=== PATIENT | female | born 1975 | race Caucasian/White ===

== ENCOUNTER → 2018-06-14 | Outpatient (CLI) | payer OTHER ==
--- NOTE | 2018-06-14 08:59 | US ---
EXAMINATION TYPE: US transvaginal DATE OF EXAM: 06/14/2018 COMPARISON: NONE CLINICAL HISTORY: N93.8 Uterine bleeding. Irregular menses. TECHNIQUE: Transvaginal (TV). Date of LMP: 06/10/2018, EXAM MEASUREMENTS: Uterus: 7.7 x 5.1 x 4.3 cm Endometrial Stripe: 0.3 cm Right Ovary: 3.0 x 1.4 x 1.9 cm Left Ovary: 2.3 x 1.5 x 1.4 cm 1. Uterus: Anteverted Heterogenous, uterus appears bulky. EARNEST left hypoechoic lesion - 0.9 x 1.0 x 0.9 cm 2. Endometrium: wnl 3. Right Ovary: wnl 4. Left Ovary: wnl 5. Bilateral Adnexa: wnl 6. Posterior cul-de-sac: no free fluid Cervix- nabothian cysts Grayscale, color Doppler imaging performed. IMPRESSION: Probable fibroid within the uterus.
== END | disposition home or self-care (01) ==
LOC: RADUSWWP 08:08
PROVIDERS: ATTEND Family Medicine
DX: N93.8 Other specified abnormal uterine and vaginal bleeding (principal)
CPT/HCPCS: 76830

== ENCOUNTER → 2018-10-14 | Outpatient (CLI) | payer OTHER ==
--- NOTE | 2018-10-17 10:38 | MM ---
Reason for exam: screening (asymptomatic). Last mammogram was performed 4 years and 9 months ago. History: Family history of breast cancer in mother at age 50. Physical Findings: A clinical breast exam by your physician is recommended on an annual basis and results should be correlated with mammographic findings. MG 3D Screening Mammo W/Cad Bilateral CC and MLO view(s) were taken. Prior study comparison: January 10, 2014, mammogram, performed at [facility]. December 26, 2012, mammogram, performed at [facility]. December 23, 2012, mammogram, performed at [facility]. There are scattered fibroglandular densities. Finding: There is a 8 mm equal density (isodense), circumscribed, microlobulated oval mass located 4 cm from the nipple in the central position of the left breast consistent with possible mass versus cyst. New finding since January 10, 2014. ASSESSMENT: Incomplete: need additional imaging evaluation, BI-RAD 0 RECOMMENDATION: Ultrasound of the left breast. [facility] will attempt to contact patient to return for ultrasound.
== END | disposition home or self-care (01) ==
LOC: RADMAMWWP 11:22
PROVIDERS: ATTEND Family Medicine
DX: Z12.31 Encounter for screening mammogram for malignant neoplasm of breast (principal)
CPT/HCPCS: 77063; 77067

== ENCOUNTER → 2018-11-01 | Outpatient (CLI) | payer OTHER ==
--- NOTE | 2018-11-01 11:29 | USB ---
Reason for exam: additional evaluation requested from abnormal screening. History: Family history of breast cancer in mother at age 50. Physical Findings: Nurse Summary: right breast soft, movable, left breast nodular (nurse cw). US Breast Workup Limited LT Left limited breast ultrasound including focal area of concern, retroareolar and axilla demonstrates a 0.9 x 0.7 x 0.6cm solid, hypoechoic lesion at 7 o'clock. These results were verbally communicated with the patient and result sheet given to the patient on 11/01/18. ASSESSMENT: Suspicious, BI-RAD 4 RECOMMENDATION: Ultrasound core biopsy of the left breast. Called Dr. Negrete with mammographic findings and has scheduled an appointment for the patient for 11/15/18 at 9:[address] Marc. Biopsy scheduled for 11/08/18 at 12:20. PRELIMINARY REPORT CALLED AND FAXED TO DR. MARC ON 11/01/18.
== END | disposition home or self-care (01) ==
LOC: RADUSWWP 08:02
PROVIDERS: ATTEND Family Medicine
DX: R92.8 Other abnormal and inconclusive findings on diagnostic imaging of breast (principal)

== ENCOUNTER → 2018-11-08 | Day surgery (SDC) | payer OTHER ==
[2018-11-08 11:37] VITALS: TEMP 98; BMI 29.8
[2018-11-08 13:28] VITALS: BP 118/70; PULSE 75; RESP 13
--- NOTE | 2018-11-08 14:51 | USB ---
EXAMINATION TYPE: US biopsy breast VAD LT, MG diagnostic mammo LT wo CAD DATE OF EXAM: 11/08/2018 CLINICAL HISTORY: R92.8 ABN MAMMO. TECHNIQUE: Ultrasound guided core biopsy of left breast. COMPARISON: 10/14/2018 FINDINGS: The procedure of ultrasound guided core biopsy was explained to the patient. Benefits, alternatives, and risks were discussed. An informed consent was then obtained. Preprocedural timeout was performed. The patient was placed in supine positioning for imaging and for the procedure. The overlying skin was prepped and draped in usual sterile fashion. 10 cc of lidocaine buffered with bicarbonate was used as anesthetic into the skin and subcutaneous tissue up to the 0.9 x 0.7 x 0.6 cm hypoechoic mass in the left breast. Preprocedural imaging this appeared to possibly relate to a minimally complicated cyst. Under ultrasound guidance, a 12-gauge vacuum assisted biopsy gun device was used to obtain 3 core samples. After initial biopsy the cyst collapsed. 2 additional biopsies were obtained to evaluate for any atypical surrounding cells or confirmation of an inflammatory cyst. Following this, a ribbon-shaped biopsy marker was left at the site of biopsy. The patient tolerated the procedure well without any immediate complication. Preprocedural mammogram demonstrated appropriate biopsy marker placement. The patient was kept in the radiology department for short stay after the procedure and then discharged home in stable condition. IMPRESSION: Successful, uncomplicated ultrasound guided core biopsy of a minimally complex 9 mm cyst at the 7:00 position in the right breast with collapse of the cyst on an initial biopsy, full pathology results to follow. 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 Recommendation Surgical consult of the left breast. (incidental PASH) MTDD
== END | disposition home or self-care (01) ==
LOC: RADUSWWP 11:09
PROVIDERS: ATTEND Family Medicine
DX: N60.32 Fibrosclerosis of left breast (principal); N62 Hypertrophy of breast
CPT/HCPCS: 88305; 77065; 19083; A4648; J2001

== ENCOUNTER → 2020-03-25 | Outpatient (CLI) | payer OTHER ==
[2020-03-26 01:46] LABS: Hemoglobin A1C 7.4 % (4.0-6.0)
== END | disposition home or self-care (01) ==
LOC: LABWHC1 07:51
PROVIDERS: ATTEND Family Medicine
DX: E11.9 Type 2 diabetes mellitus without complications (principal)
CPT/HCPCS: 36415; 83036

== ENCOUNTER 2020-05-28 09:14 | Observation (INO) | payer OTHER ==
[2020-05-28 09:37] LABS: Glucose,Whole Blood 162 mg/dL (75-99)
[2020-05-28 09:54] LABS: Basophils # (A) 0.1 k/uL (0-0.2); Basophils % (A) 1 %; Eosinophils # (A) 0.3 k/uL (0-0.7); Eosinophils % (A) 3 %; HCT 43.5 % (34.0-46.0); HGB 14.3 gm/dL (11.4-16.0); Lymphocytes # (A) 3.1 k/uL (1.0-4.8); Lymphocytes % (A) 37 %; MCH 29.1 pg (25.0-35.0); MCHC 32.9 g/dL (31.0-37.0); MCV 88.3 fL (80.0-100.0); Mean Platelet Volume 8.5; Monocytes # (A) 0.3 k/uL (0-1.0); Monocytes % (A) 3 %; Neutrophils # (A) 4.6 k/uL (1.3-7.7); Neutrophils % (A) 55 %; Platelet Count 260 k/uL (150-450); RBC 4.93 m/uL (3.80-5.40); RDW 12.8 % (11.5-15.5); WBC 8.4 k/uL (3.8-10.6)
--- NOTE | 2020-05-28 09:59 | ED ---
General Adult HPI - General Chief complaint: Neuro Symptoms/Deficit Stated complaint: Vision disturbance, arm numbness Time Seen by Provider: 05/28/20 09:20 Source: patient Mode of arrival: wheelchair Limitations: no limitations - History of Present Illness Initial comments: This is a 44-year-old female past medical history of diabetes who [facility] with reported strokelike symptoms. Patient states around 8:40 AM she developed sudden onset of difficulties with her speech, right upper and lower extremity weakness. Patient states as if her hand was completely numb and she couldn't waiter/waitress captain anything. I had a visual disturbance in her right eye which lasted for approximately 10 minutes and then resolved. Speech difficulties and right sided weakness or persistent upon hospital presentation. Denies history of CVA. No recent head trauma. She does complain of a headache at this time. No chest pain or short of breath. No abdominal pain. Denies concern for . No other alleviating, precipitating or modifying factors - Related Data Home Medications Medication Instructions Recorded Confirmed Ibuprofen [Motrin Ib] 800 mg PO Q8H PRN 05/28/20 05/28/20 Multivitamins, Thera [Multivitamin 1 tab PO DAILY 05/28/20 05/28/20 (formulary)] metFORMIN HCL ER [Glucophage Xr] 500 mg PO DAILY 05/28/20 05/28/20 Previous Rx's Medication Instructions Recorded Atorvastatin Calcium [Lipitor] 10 mg PO HS #30 tab 05/29/20 Allergies Allergy/AdvReac Type Severity Reaction Status Date / Time No Known Allergies Allergy Verified 05/28/20 10:14 Review of Systems ROS Statement: Those systems with pertinent positive or pertinent negative responses have been documented in the HPI. ROS Other: All systems not noted in ROS Statement are negative. Past Medical History Past Medical History: Diabetes Mellitus History of Any Multi-Drug Resistant Organisms: None Reported Past Surgical History: Cholecystectomy, Orthopedic Surgery Additional Past Surgical History / Comment(s): right knee cyst removal, breast biopsy Past Anesthesia/Blood Transfusion Reactions: No Reported Reaction Additional Past Anesthesia/Blood Transfusion Reaction / Comment(s): No blood transfusion to date Past Psychological History: No Psychological Hx Reported Smoking Status: Current every day smoker Past Alcohol Use History: Rare Past Drug Use History: None Reported - Past Family History Mother Family Medical History: Cancer Additional Family Medical History / Comment(s): patient's mother was dx with breast cancer in her 50's, patients maternal grandmother was dx with breast cancer in her 70's General Exam Limitations: no limitations General appearance: alert, in no apparent distress Head exam: Present: atraumatic, normocephalic, normal inspection Eye exam: Present: normal appearance, PERRL, EOMI. Absent: scleral icterus, conjunctival injection, periorbital swelling ENT exam: Present: normal exam, mucous membranes moist Neck exam: Present: normal inspection. Absent: tenderness, meningismus, lymphadenopathy Respiratory exam: Present: normal lung sounds bilaterally. Absent: respiratory distress, wheezes, rales, rhonchi, stridor Cardiovascular Exam: Present: regular rate, normal rhythm, normal heart sounds. Absent: systolic murmur, diastolic murmur, rubs, gallop, clicks GI/Abdominal exam: Present: soft, normal bowel sounds. Absent: distended, tenderness, guarding, rebound, rigid Extremities exam: Present: normal inspection, full ROM, normal capillary refill. Absent: tenderness, pedal edema, joint swelling, calf tenderness Back exam: Present: normal inspection Neurological exam: Present: alert, oriented X3, CN II-XII intact, other (4/5 strength in the right upper and lower extremity. Mild delayed speech. No aphasia or dysarthria) Psychiatric exam: Present: normal affect, normal mood Skin exam: Present: warm, dry, intact, normal color. Absent: rash Course Vital Signs 05/28/20 05/28/20 05/28/20 09:20 09:38 09:45 Temperature 98.5 F 98.5 F 97.7 F Pulse Rate 75 71 66 Respiratory 18 18 8 L Rate Blood Pressure 156/79 144/81 143/77 O2 Sat by Pulse 100 100 100 Oximetry 05/28/20 05/28/20 05/28/20 09:56 10:00 10:15 Temperature 97.8 F 97.8 F Pulse Rate 661 H 70 69 Respiratory 8 L 8 L 18 Rate Blood Pressure 143/77 138/76 130/74 O2 Sat by Pulse 100 100 100 Oximetry 05/28/20 05/28/20 05/28/20 10:30 10:59 11:15 Temperature 97.7 F 97.8 F 98.4 F Pulse Rate 58 L 60 55 L Respiratory 18 18 18 Rate Blood Pressure 125/68 135/78 134/72 O2 Sat by Pulse 100 100 100 Oximetry 05/28/20 11:25 Temperature Pulse Rate 54 L Respiratory 18 Rate Blood Pressure 134/72 O2 Sat by Pulse 100 Oximetry - Reevaluation(s) Reevaluation #1: 05/28/20 09:[address] Rios EKG Findings - EKG Comments: EKG Findings:: EKG demonstrates a normal sinus rhythm with a ventricular rate of 80. NE interval 166. QRS 74. QTC of 429. Inverted T-wave in 3 and aVF. No acute ST segment elevations Medical Decision Making - Medical Decision Making Upon arrival patient is placed into room 2. A thorough history and physical exam was performed. Patient does remain with persistent weakness of her right upper and lower externally. She also has mild dysarthria. Called stroke is activated. Patient has an NIH of 3. I discussed the case with Dr. Rios who states that with the patient's low NIH she does not qualify for TPA. Laboratory studies were conducted and the patient went for a CT of her brain as well as CT angiography. Lab studies are reviewed. CT as well as CT angiography of the patient's brain was performed which demonstrates new acute process. Chest x-ray demonstrates no acute process. Patient is reevaluated and NIH is 0 at this time. I discussed results with the patient. She was given a full dose aspirin. I did recommend hospitalization for neurology evaluation for which the patient did agree to. Discuss case with Dr. Fox who agreed to admit the patient. She currently remained in stable condition and was transported to the floor - Lab Data Result diagrams: 05/29/20 07:02 05/29/20 07:02 Lab Results 05/28/20 05/28/20 05/28/20 Range/Units 09:30 09:30 09:30 WBC 8.4 (3.8-10.6) k/uL RBC 4.93 (3.80-5.40) m/uL Hgb 14.3 (11.4-16.0) gm/dL Hct 43.5 (34.0-46.0) % MCV 88.3 (80.0-100.0) fL MCH 29.1 (25.0-35.0) pg MCHC 32.9 (31.0-37.0) g/dL RDW 12.8 (11.5-15.5) % Plt Count 260 (150-450) k/uL MPV 8.5 Neutrophils % 55 % Lymphocytes % 37 % Monocytes % 3 % Eosinophils % 3 % Basophils % 1 % Neutrophils # 4.6 (1.3-7.7) k/uL Lymphocytes # 3.1 (1.0-4.8) k/uL Monocytes # 0.3 (0-1.0) k/uL Eosinophils # 0.3 (0-0.7) k/uL Basophils # 0.1 (0-0.2) k/uL PT 9.7 (9.0-12.0) sec INR 0.9 (<1.2) APTT 22.5 (22.0-30.0) sec Sodium 136 L (137-145) mmol/L Potassium 4.3 (3.5-5.1) mmol/L Chloride 103 (98-107) mmol/L Carbon Dioxide 28 (22-30) mmol/L Anion Gap 5 mmol/L BUN 14 (7-17) mg/dL Creatinine 0.75 (0.52-1.04) mg/dL Est GFR (CKD-EPI)AfAm >90 (>60 ml/min/1.73 sqM) Est GFR (CKD-EPI)NonAf >90 (>60 ml/min/1.73 sqM) Glucose 168 H (74-99) mg/dL POC Glucose (mg/dL) (75-99) mg/dL POC Glu [employer] Machine Operator ID Estimated Ave Glu mg/dL Hemoglobin A1c (4.0-6.0) % Calcium 10.3 H (8.4-10.2) mg/dL Total Bilirubin 0.5 (0.2-1.3) mg/dL AST 24 (14-36) U/L ALT 19 (4-34) U/L Alkaline Phosphatase 72 (38-126) U/L Troponin I (0.000-0.034) ng/mL Total Protein 7.8 (6.3-8.2) g/dL Albumin 4.6 (3.5-5.0) g/dL TSH (0.465-4.680) mIU/L 05/28/20 05/28/20 05/28/20 Range/Units 09:30 09:30 09:30 WBC (3.8-10.6) k/uL RBC (3.80-5.40) m/uL Hgb (11.4-16.0) gm/dL Hct (34.0-46.0) % MCV (80.0-100.0) fL MCH (25.0-35.0) pg MCHC (31.0-37.0) g/dL RDW (11.5-15.5) % Plt Count (150-450) k/uL MPV Neutrophils % % Lymphocytes % % Monocytes % % Eosinophils % % Basophils % % Neutrophils # (1.3-7.7) k/uL Lymphocytes # (1.0-4.8) k/uL Monocytes # (0-1.0) k/uL Eosinophils # (0-0.7) k/uL Basophils # (0-0.2) k/uL PT (9.0-12.0) sec INR (<1.2) APTT (22.0-30.0) sec Sodium (137-145) mmol/L Potassium (3.5-5.1) mmol/L Chloride (98-107) mmol/L Carbon Dioxide (22-30) mmol/L Anion Gap mmol/L BUN (7-17) mg/dL Creatinine (0.52-1.04) mg/dL Est GFR (CKD-EPI)AfAm (>60 ml/min/1.73 sqM) Est GFR (CKD-EPI)NonAf (>60 ml/min/1.73 sqM) Glucose (74-99) mg/dL POC Glucose (mg/dL) (75-99) mg/dL POC Glu [employer] Operator ID Estimated [address] Glu mg/dL 160 Hemoglobin A1c 7.2 H (4.0-6.0) % Calcium (8.4-10.2) mg/dL Total Bilirubin (0.2-1.3) mg/dL AST (14-36) U/L ALT (4-34) U/L Alkaline Phosphatase (38-126) U/L Troponin I <0.012 (0.000-0.034) ng/mL Total Protein (6.3-8.2) g/dL Albumin (3.5-5.0) g/dL TSH 3.340 (0.465-4.680) mIU/L 05/28/20 Range/Units 09:36 WBC (3.8-10.6) k/uL RBC (3.80-5.40) m/uL Hgb (11.4-16.0) gm/dL Hct (34.0-46.0) % MCV (80.0-100.0) fL MCH (25.0-35.0) pg MCHC (31.0-37.0) g/dL RDW (11.5-15.5) % Plt Count (150-450) k/uL MPV Neutrophils % % Lymphocytes % % Monocytes % % Eosinophils % % Basophils % % Neutrophils # (1.3-7.7) k/uL Lymphocytes # (1.0-4.8) k/uL Monocytes # (0-1.0) k/uL Eosinophils # (0-0.7) k/uL Basophils # (0-0.2) k/uL PT (9.0-12.0) sec INR (<1.2) APTT (22.0-30.0) sec Sodium (137-145) mmol/L Potassium (3.5-5.1) mmol/L Chloride (98-107) mmol/L Carbon Dioxide (22-30) mmol/L Anion Gap mmol/L BUN (7-17) mg/dL Creatinine (0.52-1.04) mg/dL Est GFR (CKD-EPI)AfAm (>60 ml/min/1.73 sqM) Est GFR (CKD-EPI)NonAf (>60 ml/min/1.73 sqM) Glucose (74-99) mg/dL POC Glucose (mg/dL) 162 H (75-99) mg/dL POC Glu [employer] Operator Leni Parkinson [address] Glu mg/dL Hemoglobin A1c (4.0-6.0) % Calcium (8.4-10.2) mg/dL Total Bilirubin (0.2-1.3) mg/dL AST (14-36) U/L ALT (4-34) U/L Alkaline Phosphatase (38-126) U/L Troponin I (0.000-0.034) ng/mL Total Protein (6.3-8.2) g/dL Albumin (3.5-5.0) g/dL TSH (0.465-4.680) mIU/L Critical Care Time Critical Care Time: Yes Critical Care Time: 32 minutes for activation of code stroke Disposition Clinical Impression: TIA (transient ischemic attack), Migraine Disposition: ADMITTED IP TO THIS [facility] Condition: Stable Is patient prescribed a controlled substance at d/c from ED?: No Decision to Admit Reason: Admit from EC Decision Date: 05/28/20 Decision Time: 11:28
--- NOTE | 2020-05-28 10:04 | CT ---
EXAMINATION TYPE: CT brain wo con for TPA DATE OF EXAM: 05/28/2020 COMPARISON: MRI brain 05/10/2015 INDICATION: Rt sided arm weakness DLP: 1148.8 mGycm, Automated exposure control for dose reduction was used. CONTRAST: None CT of the brain is performed utilizing 3 mm thick sections through the posterior fossa and 3 mm thick sections through the remaining calvarium. Study is performed within 24 hours of arrival to the hosp [facility]. No abnormal hyperdensity is present to suggest an acute intracranial hemorrhage. No mass lesion is evident. No acute infarcts are evident. Ventricles and sulci are appropriate for the patient age. Paranasal sinuses and mastoid air cells within the [id number] are clear. IMPRESSIONS: 1. No acute intracranial process.
[2020-05-28 10:09] LABS: ALT 19 U/L (4-34); AST 24 U/L (14-36); African American GFR (CKD) >90 (>60 ml/min/1.73 sqM); Albumin 4.6 g/dL (3.5-5.0); Alkaline Phosphatase 72 U/L (38-126); Anion Gap 5 mmol/L; Blood Urea Nitrogen 14 mg/dL (7-17); Calcium 10.3 mg/dL (8.4-10.2); Carbon Dioxide 28 mmol/L (22-30); Chloride 103 mmol/L (98-107); Glucose 168 mg/dL (74-99); Non-African American GFR(CKD) >90 (>60 ml/min/1.73 sqM); Potassium 4.3 mmol/L (3.5-5.1); Sodium 136 mmol/L (137-145); Total Bilirubin 0.5 mg/dL (0.2-1.3); Total Protein 7.8 g/dL (6.3-8.2)
[2020-05-28 10:18] LABS: INR 0.9 (<1.2)
[2020-05-28 10:19] LABS: Partial Thromboplastin Time 22.5 sec (22.0-30.0); Prothrombin Time 9.7 sec (9.0-12.0)
--- NOTE | 2020-05-28 10:56 | CT ---
EXAMINATION TYPE: CT angio head neck DATE OF EXAM: 05/28/2020 HISTORY: Visual disturbances, right arm weakness COMPARISON: CT brain same day CT DLP: 512.6 mGycm. Automated Exposure Control for Dose Reduction was Utilized. TECHNIQUE: CTA scan of the neck is performed with IV Contrast, patient injected with 65 mL of Isovue 370, axial images are obtained, coronal and sagittal reformatted images are reviewed. Three-D recons tructed images are created on an independent workstation and reviewed. FINDINGS: Carotid/Vascular Structures: There is no significant stenosis by NASCET criteria within the proximal internal carotid arteries. The innominate, transverse aorta, left and right common carotid arteries, left and right internal and external carotid arteries, left and right subclavian arteries are patent, the left and right vertebral arteries are patent. Anterior posterior circulation within the brain are patent, there is no evident embolus, dissection, or aneurysm. Other: Degenerative disc changes are present in the visualized spine. IMPRESSION: No significant abnormality is seen as described.
--- NOTE | 2020-05-28 11:10 | XR ---
EXAMINATION TYPE: XR chest 2V DATE OF EXAM: 05/28/2020 COMPARISON: NONE HISTORY: Altered mental status TECHNIQUE: Frontal and lateral views of the chest are obtained. FINDINGS: There is no focal air space opacity, pleural effusion, or pneumothorax seen. The cardiac silhouette size is within normal limits. The osseous structures are intact. Overlying cardiac leads . IMPRESSION: No acute cardiopulmonary process.
[2020-05-28] MEDS ORDERED: ASPIRIN 325 MG TAB PO STA (11:13)
[2020-05-28] MEDS ORDERED: NALOXONE 0.4 MG/ML 1 ML VIAL IV PRN (11:28)
[2020-05-28] MEDS ORDERED: diphenhydrAMINE 50 MG/ML 1 ML VIAL IVP STA (12:02)
[2020-05-28] MEDS ORDERED: METOCLOPRAMIDE 5 MG/ML 2 ML VIAL IVP STA (12:02)
[2020-05-28 12:03] LABS: Glucose,Whole Blood 113 mg/dL (75-99)
--- NOTE | 2020-05-28 14:07 | P.CNNES ---
History of Present Illness Consult date: 05/28/20 Requesting physician: Marlena Valdes Reason for Consult: Acute rt-sided weakness, acute visual disturbance, complex migraines, ?TIA History of Present Illness: Patient is a 44-year-old female with history of diabetes came to the hospital today at 9:14 AM came to the hospital for strokelike symptoms. Patient went to work in the morning. She was feeling perfectly fine. At 8:40 AM she had sudden onset of visual disturbance with blurred vision, couldn't see like fuzzy vision. She thought that she was just seeing through the sunlight. However shortly after she noticed numbness of the right arm that extended to the right hand. She felt as if she was sitting on the right hand for some time and felt numb. 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 About 5 minutes later, she also noticed slurred speech and tongue felt heavy like it is swollen. Patient states that visual symptoms lasted for only about 5 minutes, whereas the right arm numbness and speech difficulty lasted for about 20-30 minutes. With the slurred speech, she also started having a headache involving bifrontal region and inside her eyes, no nausea or vomiting. She got concerned and came to the ER and arrived at 9:14 AM. By the time she arrived here, all symptoms had completely resolved except for headache. There was no facial droop reported. Patient never had noticed any weakness in the right leg or problems walking, although patient claims that when she was evaluated in the ER, the examiner noted right leg weakness. Vital signs on arrival blood pressure 156/79, pulse rate 75, temperature 98.5. Blood test shows normal CBC, PT/PTT. Sodium 136 potassium 4.3, normal renal functions. Hepatic panel normal. Troponin negative. Patient had normal thy roid functions on 09/28/2019. Her total cholesterol is 207, LDL 90.8, HDL 45 and triglycerides 356 on 09/28/2019. Hemoglobin A1c 7.4 on 03/25/2020. Computed tomography scan of head negative. CT angiogram of head and neck showed no significant abnormality. No evidence of embolus, dissection or aneurysm. Degenerative disc changes are present in the visualized spine. Chest x-ray showed no acute cardiopulmonary process. EKG normal sinus rhythm. Patient denies any previous history of strokes or TIA. Patient has diabetes diagnosed about 6 months ago. Her initial hemoglobin A1c was 8. Patient denies hypertension. She does have history of tobacco use of half pack per day since age 15. Denies any alcohol or drug use. Patient states that she does have history of migraines but has not had any migraines for a long time. Her current headache was completely different as compared to her usual migraines and she never gets any aura. Patient states that with her migraines she used to see Dr. Felton, who performed a cortisone shots in her occipital region. Patient does take metformin 500 mg daily, multivitamins and ibuprofen. Patient does not take any control pills, hormones. Denies any history of head or neck trauma. Patient does have a history of some paresthesias of her hands and feet for which she is being scheduled to be seen for an EMG testing as outpatient. Patient states her mother has history of TIA. Review of Systems Patient does have some headache, otherwise completely unremarkable. All 14 point review of systems unremarkable. Past Medical History Past Medical History: Diabetes Mellitus History of Any Multi-Drug Resistant Organisms: None Reported Past Surgical History: Cholecystectomy, Orthopedic Surgery Additional Past Surgical History / Comment(s): right knee cyst removal, breast biopsy Past Anesthesia/Blood Transfusion Reactions: No Reported Reaction Additional Past Anesthesia/Blood Transfusion Reaction / Comment(s): No blood transfusion to date Past Psychological History: No Psychological Hx Reported Smoking Status: Current every day smoker Past Alcohol Use History: Rare Past Drug Use History: None Reported - Past Family History Mother Family Medical History: Cancer Additional Family Medical History / Comment(s): patient's mother was dx with breast cancer in her 50's, patients maternal grandmother was dx with breast cancer in her 70's Medications and Allergies Home Medications Medication Instructions Recorded Confirmed Type Ibuprofen [Motrin Ib] 800 mg PO Q8H PRN 05/28/20 05/28/20 History Multivitamins, Thera [Multivitamin 1 tab PO DAILY 05/28/20 05/28/20 History (formulary)] metFORMIN HCL ER [Glucophage Xr] 500 mg PO DAILY 05/28/20 05/28/20 History Allergies Allergy/AdvReac Type Severity Reaction Status Date / Time No Known Allergies Allergy Verified 05/28/20 10:14 Physical Examination - Vital Signs Vital Signs: Vital Signs Temp Pulse Pulse Resp BP BP Pulse Ox 05/28/20 12:46 97.7 F 86 12 127/72 97 05/28/20 11:25 54 L 18 134/72 100 05/28/20 11:15 98.4 F 55 L 18 134/72 100 05/28/20 10:59 97.8 F 60 18 135/78 100 05/28/20 10:30 97.7 F 58 L 18 125/68 100 05/28/20 10:15 97.8 F 69 18 130/74 100 05/28/20 10:00 97.8 F 70 8 L 138/76 100 05/28/20 09:56 661 H 8 L 143/77 100 05/28/20 09:45 97.7 F 66 8 L 143/77 100 05/28/20 09:38 98.5 F 71 18 144/81 100 05/28/20 09:20 98.5 F 75 18 156/79 100 Intake and Output 05/27/20 05/28/20 05/28/20 22:59 06:59 14:59 Other: # Voids 1 Weight 72.575 kg On examination patient is a middle aged female very pleasant in no acute distress. Patient is alert and awake oriented to time place and person speech and language function are normal. Attention and concentration fund of knowledge is adequate. On cranial examination pupils are round and reactive to light, visual hutson are full on confrontation, extraocular muscles are intact with no nystagmus. Face is symmetric, tongue protrudes to the midline. Palatal elevation sensation normal hearing and shoulder shrug normal. On muscle strength testing there is no pronator drift and the strength is normal in arms and legs distally and proximally reflexes are trace in the upper limbs, 1 at the knee and ankles. Plantars downgoing. Sensory touch is equal. Temperature sensation also equal. No ataxia for [id number] or onna-it-ongy testing. Her tone and bulk of muscles normal. Gait normal. No obvious bruit, S1 and S2 audible, abdomen soft nontender, chest is clear. Peripheral pulses present. No edema. Results - Laboratory Findings CBC and BMP: 05/28/20 09:30 05/28/20 09:30 Abnormal Lab Findings: Abnormal Labs 05/28/20 05/28/20 05/28/20 09:30 09:36 12:01 Sodium 136 L Glucose 168 H POC Glucose (mg/dL) 162 H 113 H Calcium 10.3 H Assessment and Plan Assessment: * Probable TIA manifesting with transient blurred vision, right arm weakness and numbness, and slurred speech, that resolved in slightly over 30 minutes. Complex migraine less likely. Patient never has history of migraine aura in the past, therefore complex migraine less likely. * History of common migraine headaches. * Vascular risk factors include diabetes, hyperlipidemia and [id number] of tobacco use. Plan: * Patient will undergo MRI of brain to evaluate for an acute stroke. * CTA of head and neck was negative for any intracranial or extracranial stenosis, or aneurysm. * 2-D echo with bubble study to rule out PFO or other embolic source. * Fasting a.m. lipid panel and hemoglobin A1c. * Start aspirin 325 mg daily. * Telemetric monitoring rule out any arrhythmia. * Neurology will follow.
[2020-05-28] MEDS ORDERED: ACETAMINOPHEN TAB 325 MG TAB PO PRN (14:23)
[2020-05-28] MEDS: SODIUM CHLORIDE 0.9% 1,000 ML IV SCH (15:07)
[2020-05-28] MEDS: ATORVASTATIN 40 MG TAB PO SCH (15:07)
--- NOTE | 2020-05-28 15:24 | P.HPIM ---
History of Present Illness H&P Date: 05/28/20 This is a 44-year-old female with past medical history significant for type 2 diabetes who presented to the emergency room with strokelike symptoms. Patient said that she went to work and was perfectly normal this morning and around 840 she started having blurred vision and subsequently had right arm numbness all the way down to her right hand. Patient said that her right hand felt weak as well. A few minutes later she was having slurred speech and felt that her tongue was heavy. Patient said that her symptoms lasted approximately 20 minutes. She denies any headache. She was evaluated in the ER and computed tomography scan of the brain and CT angiogram of the head and neck showed no ac minto findings. Case was discussed with telemetry neurology by ED staff and plan to place patient in observation for further management. Patient was seen by me in her room. She denies any symptoms at this time. Review of Systems Review of system: 14 points review of systems were obtained and were negative except to what were mentioned in the HPI. Past Medical History Past Medical History: Diabetes Mellitus History of Any Multi-Drug Resistant Organisms: None Reported Past Surgical History: Cholecystectomy, Orthopedic Surgery Additional Past Surgical History / Comment(s): right knee cyst removal, breast biopsy Past Anesthesia/Blood Transfusion Reactions: No Reported Reaction Additional Past Anesthesia/Blood Transfusion Reaction / Comment(s): No blood transfusion to date Past Psychological History: No Psychological Hx Reported Smoking Status: Current every day smoker Past Alcohol Use History: Rare Past Drug Use History: None Reported - Past Family History Mother Family Medical History: Cancer Additional Family Medical History / Comment(s): patient's mother was dx with breast cancer in her 50's, patients maternal grandmother was dx with breast cancer in her 70's Medications and Allergies Home Medications Medication Instructions Recorded Confirmed Type Ibuprofen [Motrin Ib] 800 mg PO Q8H PRN 05/28/20 05/28/20 History Multivitamins, Thera [Multivitamin 1 tab PO DAILY 05/28/20 05/28/20 History (formulary)] metFORMIN HCL ER [Glucophage Xr] 500 mg PO DAILY 05/28/20 05/28/20 History Allergies Allergy/AdvReac Type Severity Reaction Status Date / Time No Known Allergies Allergy Verified 05/28/20 10:14 Physical Exam Vitals: Vital Signs Temp Pulse Pulse Resp BP BP Pulse Ox 05/28/20 12:46 97.7 F 86 12 127/72 97 05/28/20 11:25 54 L 18 134/72 100 05/28/20 11:15 98.4 F 55 L 18 134/72 100 05/28/20 10:59 97.8 F 60 18 135/78 100 05/28/20 10:30 97.7 F 58 L 18 125/68 100 05/28/20 10:15 97.8 F 69 18 130/74 100 05/28/20 10:00 97.8 F 70 8 L 138/76 100 05/28/20 09:56 661 H 8 L 143/77 100 05/28/20 09:45 97.7 F 66 8 L 143/77 100 05/28/20 09:38 98.5 F 71 18 144/81 100 05/28/20 09:20 98.5 F 75 18 156/79 100 Intake and Output 05/28/20 05/28/20 05/28/20 06:59 14:59 22:59 Other: # Voids 1 Weight 72.575 kg General: The patient is awake and alert, in no distress Eye: there is normal conjunctiva bilaterally. Neck: The neck is supple, there is no JVD. Cardiovascular: Normal S1-S2, no S3-S4, no murmurs. Respiratory: Lungs clear to auscultation bilaterally Gastrointestinal: Abdomen is soft, nontender Musculoskeletal: There is no pedal edema. Neurological:. Speech is normal. Skin: Skin is warm and dry Results CBC & Chem 7: 05/28/20 09:30 05/28/20 09:30 Labs: Abnormal Lab Results - Last 24 Hours (Table) 05/28/20 05/28/20 05/28/20 Range/Units 09:30 09:36 12:01 Sodium 136 L (137-145) mmol/L Glucose 168 H (74-99) mg/dL POC Glucose (mg/dL) 162 H 113 H (75-99) mg/dL Calcium 10.3 H (8.4-10.2) mg/dL Thrombosis Risk Factor Assmnt - Choose All That Apply Any of the Below Risk Factors Present?: Yes Each Factor Represents 1 point: Age 41-60 years Thrombosis Risk Factor Assessment Total Risk Factor Score: 1 Thrombosis Risk Factor Assessment Level: Low Risk Assessment and Plan Assessment: This is a 44-year-old female with past medical history noted below who presented to the emergency room with strokelike symptoms involving right arm and right hand numbness and weakness as well as slurred speech. Patient was evaluated in the ER and placed on observation for further management of her medical problems noted below 1. Suspected TIA, seen and evaluated by neurology. Started on full dose aspirin daily. I would add Lipitor 40 mg daily. MRI ordered and pending. Co mputed tomography scan of the brain and CT angiogram of the head and neck in the ER unremarkable. Echocardiogram with bubble study pending. 2. Type 2 diabetes, hold metformin and continue sliding scale insulin. A1c pending. 3. DVT prophylaxis with subcu heparin We will continue telemetry monitoring. PT/OT/speech pathology evaluation. IV fluid hydration with normal saline at 75 mL per hour.
--- NOTE | 2020-05-28 16:43 | ECHOF ---
Referral Reason:TIA versus CVA MEASUREMENTS -------- HEIGHT: 167.6 cm WEIGHT: 72.6 kg BP: RVIDd: 2.5 cm (< 3.3) IVSd: 1.4 cm (0.6 - 1.1) LVIDd: 3.4 cm (3.9 - 5.3) LVPWd: 1.3 cm (0.6 - 1.1) IVSs: 1.5 cm LVIDs: 2.6 cm LVPWs: 1.7 cm LAESV Index (A-L): 16.67 ml/m Ao Diam: 3.1 cm (2.0 - 3.7) AV Cusp: 1.7 cm (1.5 - 2.6) LA Diam: 2.3 cm (2.7 - 3.8) MV EXCURSION: 14.967 mm (> 18.000) MV EF SLOPE: 106 mm/s (70 - 150) EPSS: 0.5 cm MV E Kane: 0.99 m/s MV DecT: 245 ms MV A Kane: 0.63 m/s MV E/A Ratio: 1.57 RAP: 5.00 mmHg RVSP: 19.00 mmHg FINDINGS -------- This was a technically good study. The left ventricular size is normal. There is mild concentric left ventricular hypertrophy. Overa ll left ventricular systolic function is normal with, an EF between 55 - 60 %. The diastolic fillin g pattern is normal for the age of the patient 10.43. The right ventricle is normal in size. The left atrial size is normal. Normal LA size by volume 22+/-6 ml/m2. The right atrial size is normal. Contrast study was performed with 1 iv injection of 8 ccs of agitated normal saline at rest. Interatrial and interventricular septum intact. The aortic valve is trileaflet and appears structurally normal. The mitral valve is normal. There is trace mitral regurgitation. The tricuspid valve appears structurally normal. Trace tricuspid regurgitation present. Right kelly tricular systolic pressure is normal at < 35 mmHg. There is no pulmonic regurgitation present. The aortic root size is normal. Normal inferior vena cava with normal inspiratory collapse consistent with estimated right atrial pre ssure of 5 mmHg. There is no pericardial effusion. CONCLUSIONS -------- 1. The left ventricular size is normal. 2. There is mild concentric left ventricular hypertrophy. 3. Overall left ventricular systolic function is normal with, an EF between 55 - 60 %. 4. The diastolic filling pattern is normal for the age of the patient 10.43 5. Contrast study was performed with 1 iv injection of 8 ccs of agitated normal saline . No bubbles c rossing. 6. Interatrial and interventricular septum intact. 7. There is trace mitral regurgitation. 8. Trace tricuspid regurgitation present. 9. There is no pericardial effusion. WOOD HACKER: Amanda Ji RDCS
--- NOTE | 2020-05-28 16:49 | MR ---
MR brain without contrast HISTORY: TIA versus cerebral vascular accident, neuro deficit Multiplanar multisequence imaging through the brain Correlation to CT brain 05/28/2020, MR brain 05/10/2015 There is no restricted diffusion. There is no hemorrhage or hydrocephalus. White matter signal change s show a similar appearance to prior exam, hyperintensity in the left and right frontal white matter on inversion recovery T2-weighted sequences, hyperintensity within the rangel is unchanged, inferior ce rebellar tonsillar ectopia shows a similar appearance. There are normal vascular flow voids. Cerebell opontine angles, corpus callosum, solitary, cervical medullary junction are unchanged. Orbits show sy mmetric appearance. Paranasal sinuses and mastoid air cells are well aerated. IMPRESSION: Stable brain MRI. No subacute ischemia evident.
[2020-05-28 17:07] LABS: Glucose,Whole Blood 111 mg/dL (75-99)
[2020-05-28] MEDS: INSULIN ASPART (NovoLOG) 100 UNIT/ML VIAL SQ SCH ×2 (17:33→21:18)
[2020-05-28 21:12] LABS: Glucose,Whole Blood 123 mg/dL (75-99)
[2020-05-28] MEDS: HEPARIN SODIUM,PORCINE 5,000 UNIT/ML 1 ML VIAL SQ SCH (21:20)
[2020-05-28 22:17] LABS: Hemoglobin A1C 7.2 % (4.0-6.0)
[2020-05-29] MEDS: SODIUM CHLORIDE 0.9% 1,000 ML IV SCH (05:12)
[2020-05-29] MEDS: INSULIN ASPART (NovoLOG) 100 UNIT/ML VIAL SQ SCH (06:25)
[2020-05-29 06:26] LABS: Glucose,Whole Blood 142 mg/dL (75-99)
[2020-05-29 07:24] LABS: Basophils # (A) 0.1 k/uL (0-0.2); Basophils % (A) 1 %; Eosinophils # (A) 0.3 k/uL (0-0.7); Eosinophils % (A) 3 %; HCT 40.3 % (34.0-46.0); HGB 13.6 gm/dL (11.4-16.0); Lymphocytes # (A) 3.7 k/uL (1.0-4.8); Lymphocytes % (A) 42 %; MCH 30.6 pg (25.0-35.0); MCHC 33.9 g/dL (31.0-37.0); MCV 90.3 fL (80.0-100.0); Mean Platelet Volume 8.8; Monocytes # (A) 0.4 k/uL (0-1.0); Monocytes % (A) 4 %; Neutrophils # (A) 4.3 k/uL (1.3-7.7); Neutrophils % (A) 49 %; Platelet Count 228 k/uL (150-450); RBC 4.46 m/uL (3.80-5.40); RDW 12.5 % (11.5-15.5); WBC 8.9 k/uL (3.8-10.6)
[2020-05-29 07:35] LABS: African American GFR (CKD) >90 (>60 ml/min/1.73 sqM); Anion Gap 4 mmol/L; Blood Urea Nitrogen 13 mg/dL (7-17); Calcium 9.1 mg/dL (8.4-10.2); Carbon Dioxide 26 mmol/L (22-30); Chloride 106 mmol/L (98-107); Cholesterol 178 mg/dL (<200); Glucose 144 mg/dL (74-99); HDL Cholesterol 32 mg/dL (40-60); LDL Cholesterol,Calculated 76 mg/dL (0-99); Non-African American GFR(CKD) >90 (>60 ml/min/1.73 sqM); Potassium 4.3 mmol/L (3.5-5.1); Sodium 136 mmol/L (137-145); Triglycerides 350 mg/dL (<150)
[2020-05-29] MEDS: ATORVASTATIN 40 MG TAB PO SCH (08:03)
[2020-05-29] MEDS: HEPARIN SODIUM,PORCINE 5,000 UNIT/ML 1 ML VIAL SQ SCH (08:03)
[2020-05-29 08:07] VITALS: BP 114/72; PULSE 57; RESP 16; TEMP 98.2
--- NOTE | 2020-05-29 08:47 | P.DS ---
Providers Date of admission: 05/28/20 11:28 Expected date of discharge: 05/29/20 Attending physician: Carey Fox Consults: 05/28/20 11:29 Consult Physician Urgent Consulting Provider: Tobi Ca Consult Reason/Comments: acute right sided weakness, acute visual disturbance, com migraine vs tia Do you want consulting provider notified?: Yes Primary care physician: Angela Negrete [place] Hospital Course: This is a 44-year-old female with past medical history noted below who presented to the emergency room with strokelike symptoms involving right arm and right hand numbness and weakness as well as slurred speech. Patient was evaluated in the ER and placed on observation for further management of her medical problems noted below 1. Suspected TIA, rule out. seen and evaluated by neurology. Computed tomography scan of the brain and CT angiogram of the head and neck in the ER unremarkable. MRI of the brain was normal. Echocardiogram showed preserved ejection fraction with no evidence of shunting or intracardiac source. 2. Type 2 diabetes, relatively well controlled. A1c 7.2. Encouraged patient to continue with lifestyle modification and exercise. Add Lipitor 10 mg daily to her regimen. Follow-up with PCP as directed. Patient will be discharged home in a stable condition. For further details about this hospitalization please refer to the electronic chart. Time spent on discharge > 30 minutes including counseling and coordination of care Patient Condition at Discharge: Stable Plan - Discharge Summary Discharge Rx Participant: No New Discharge Prescriptions: New Atorvastatin Calcium [Lipitor] 10 mg PO HS #30 tab Continue metFORMIN HCL ER [Glucophage Xr] 500 mg PO DAILY Multivitamins, Thera [Multivitamin (formulary)] 1 tab PO DAILY Ibuprofen [Motrin Ib] 800 mg PO Q8H PRN PRN Reason: Pain Or Fever > 100.5 Discharge Medication List Ibuprofen [Motrin Ib] 800 mg PO Q8H PRN 05/28/20 [History] Multivitamins, Thera [Multivitamin (formulary)] 1 tab PO DAILY 05/28/20 [History] metFORMIN HCL ER [Glucophage Xr] 500 mg PO DAILY 05/28/20 [History] Atorvastatin Calcium [Lipitor] 10 mg PO HS #30 tab 05/29/20 [Rx] Follow up Appointment(s)/Referral(s): Angela Negrete MD [Primary Care Provider] - 1 Week Discharge Disposition: HOME SELF-CARE
[2020-05-29] MEDS ORDERED: ASPIRIN 325 MG TAB PO SCH (09:00)
== END 2020-05-29 09:45 | disposition home or self-care (01) ==
LOC: EC 09:14 → 3NCARDOBS 11:28
PROVIDERS: ADMIT Internal Medicine; ATTEND Internal Medicine
DX: H53.9 Unspecified visual disturbance (principal); R20.0 Anesthesia of skin; R53.1 Weakness; R20.2 Paresthesia of skin; G43.909 Migraine, unspecified, not intractable, without status migrainosus; E78.5 Hyperlipidemia, unspecified; R47.1 Dysarthria and anarthria; R47.81 Slurred speech; E11.9 Type 2 diabetes mellitus without complications; Z90.49 Acquired absence of other specified parts of digestive tract; F17.200 Nicotine dependence, unspecified, uncomplicated; Z79.1 Long term (current) use of non-steroidal anti-inflammatories (NSAID); Z79.84 Long term (current) use of oral hypoglycemic drugs; Z80.3 Family history of malignant neoplasm of breast; Z82.3 Family history of stroke
CPT/HCPCS: 96372 ×2; 96374; 96375; 99285; 36415; 93005; 93306; 97161; 80061; 80053; 80048; 84443; 84484; 85025 ×2; 85610; 85730; 83036; 71046; 70496; 70450; 70498; 70551; G0378 ×2; J1200; J1644 ×2; J2765; Q9967

== ENCOUNTER → 2020-08-22 | Outpatient (CLI) | payer OTHER ==
--- NOTE | 2020-08-23 09:32 | MM ---
Reason for exam: additional evaluation requested from prior study. Last mammogram was performed 1 year and 9 months ago. History: Family history of breast cancer in mother at age 50. Benign US biopsy breast VAD LT of the left breast, November 08, 2018. Physical Findings: Nurse did not find any significant physical abnormalities on exam. MG 3D Diag Mammo W/Cad BELLE Bilateral CC, MLO, and XCCL view(s) were taken. Prior study comparison: November 08, 2018, left breast MG diagnostic mammo LT wo CAD. October 14, 2018, bilateral MG 3d screening mammo w/cad. The breast tissue is heterogeneously dense. This may lower the sensitivity of mammography. Previous mammotome biopsy in the left breast. On XCCL view questionable calcification subareolar position, not on magnification views. No significant new findings when compared with previous films. These results were verbally communicated with the patient and result sheet given to the patient on 08/22/20. ASSESSMENT: Probably benign, BI-RAD 3 RECOMMENDATION: Follow-up diagnostic mammogram of the left breast in 6 months.
== END | disposition home or self-care (01) ==
LOC: RADMAMWWP 12:42
PROVIDERS: ATTEND Family Medicine
DX: R92.8 Other abnormal and inconclusive findings on diagnostic imaging of breast (principal)
CPT/HCPCS: 77062; 77066

== ENCOUNTER → 2021-09-24 | Outpatient (CLI) | payer OTHER ==
--- NOTE | 2021-09-24 08:40 | MM ---
Reason for exam: additional evaluation requested from prior study. Last mammogram was performed 1 year and 1 month ago. History: Family history of breast cancer in maternal grandmother and breast cancer in mother at age 50. Benign US biopsy breast VAD LT of the left breast, November 08, 2018. Physical Findings: A clinical breast exam by your physician is recommended on an annual basis and results should be correlated with mammographic findings. MG 3D Diag Mammo W/Cad BELLE Bilateral CC, MLO, and XCCL view(s) were taken. Prior study comparison: August 22, 2020, bilateral MG 3d diag mammo w/cad BELLE. November 08, 2018, left breast MG diagnostic mammo LT wo CAD. The breast tissue is heterogeneously dense. This may lower the sensitivity of mammography. Previous mammotome biopsy in the left breast. There is no discrete abnormality including area of concern. No significant new findings when compared with previous films. These results were verbally communicated with the patient and result sheet given to the patient on 09/24/21. ASSESSMENT: Benign, BI-RAD 2 RECOMMENDATION: Routine screening mammogram of both breasts in 1 year.
== END | disposition home or self-care (01) ==
LOC: RADMAMWWP 07:34
PROVIDERS: ATTEND Family Medicine
DX: R92.8 Other abnormal and inconclusive findings on diagnostic imaging of breast (principal)
CPT/HCPCS: 77062; 77066

== ENCOUNTER → 2022-12-21 | Outpatient (CLI) | payer OTHER ==
--- NOTE | 2022-12-22 14:52 | US ---
EXAMINATION TYPE: US arterial LE single level DATE OF EXAM: 12/21/2022 1:33 PM CLINICAL INDICATION: Female, 47 years old with history of R20.2 PARESTHESIA OF SKIN; tingling bilater al legs after walking for years. Pain bilateral calves, worse at night History of: Smoker: yes Hypertension: no Diabetic: yes Hyperlipidemia: yes TIA/CVA: no Previous Vascular Surgery: no OR: no Vascular Ulcers: no Gangrene: no Doppler Waveforms: Right: Multiphasic Left: Multiphasic Right Brachial Pressure: 138 Left Brachial Pressure: 135 Ankle-Brachial Indices: Right: 1.14 Left: 1.24 Toe Brachial Indices: Right: 0.46 Left: 0.51 IMPRESSION: 1. ABIs are normal. 2. However, the TBI values suggest moderate proximal arterial atherosclerotic disease
== END | disposition home or self-care (01) ==
LOC: RADUSWWP 12:54
PROVIDERS: ATTEND Family Medicine
DX: R20.2 Paresthesia of skin (principal)
CPT/HCPCS: 93922

== ENCOUNTER → 2023-09-15 | Outpatient (CLI) | payer OTHER ==
--- NOTE | 2023-09-16 19:25 | MM ---
Reason for Exam: Screening (asymptomatic). Last mammogram was performed 2 year(s) and 0 month(s) ago. Patient History: Menarche at age 11. First Full-Term at age 20. Perimenopausal. 11/08/2018, Benign Core Biopsy on the left side. Maternal grandmother had breast cancer. Mother had breast cancer, age 50. Last menstrual period: 08/09/2023 Risk Values: Sheyla 5 year model risk: 2.3%. NCI Lifetime model risk: 19.8%. Prior Study Comparison: 11/08/2018 Left Diagnostic Mammogram, [facility]. 08/22/2020 Bilateral Diagnostic Mammogram, [facility]. 09/24/2021 Bilateral Diagnostic Mammogram, [facility]. Tissue Density: The breasts are heterogeneously dense, which may obscure small masses. Findings: Analyzed By CAD. Microclip left breast from prior biopsy. Chronic nodularity on the left. There is no suspicious group of microcalcifications or new suspicious mass in either breast. Overall Assessment: Benign, BI-RAD 2 Management: Screening Mammogram of both breasts in 1 year. See note below in regards to patient's increased lifetime risk score. Patient should continue monthly self-breast exams. A clinical breast exam by your physician is recommended on an annual basis. This exam should not preclude additional follow-up of suspicious palpable abnormalities. Note on Sheyla scores and lifetime risk: 1. A Sheyla score greater than 3% is considered moderate risk. If this is the case, consider specialist referral to assess eligibility for a risk reducing agent. 2. If overall lifetime risk for the development of breast cancer is 20% or higher, the patient may qualify for future screening with alternating mammogram and breast MRI. Electronically signed and approved by: Guillermo Valdes M.D. Radiologist
== END | disposition home or self-care (01) ==
LOC: RADMAMWWP 14:50
PROVIDERS: ATTEND Family Medicine
DX: Z12.31 Encounter for screening mammogram for malignant neoplasm of breast (principal); Z80.3 Family history of malignant neoplasm of breast
CPT/HCPCS: 77063; 77067

== ENCOUNTER → 2023-09-24 | Outpatient (CLI) | payer OTHER ==
--- NOTE | 2023-09-29 06:20 | MR ---
EXAMINATION TYPE: MR knee LT wo con DATE OF EXAM: 09/24/2023 COMPARISON: NONE HISTORY: Pain and swelling left knee x3 months TECHNIQUE: Multiplanar, multisequence images of the knee is performed without IV contrast. FINDINGS: MEDIAL MENISCUS: Anterior and posterior horns are intact without tear. LATERAL MENISCUS: Anterior and posterior horns are intact without tear. CRUCIATE LIGAMENTS: The anterior and posterior cruciate ligaments are intact and unremarkable. COLLATERAL LIGAMENTS: The medial collateral ligament and lateral collateral ligament complex are inta ct and unremarkable. EXTENSOR MECHANISM: Visualized quadriceps and patellar tendons are intact. EFFUSION: No significant suprapatellar joint effusion. POPLITEAL CYST: Tiny popliteal/wong cyst. TRICOMPARTMENT SPACES: Tricompartment joint spaces are preserved. No significant spurring is seen. CARTILAGE: Tricompartmental articular cartilage is maintained. BONE MARROW SIGNAL: No focal abnormal marrow signal is appreciated. OTHER: No additional significant abnormality is appreciated. IMPRESSION: No meniscal or ligamentous tear is seen. Tiny popliteal cyst noted.
== END | disposition home or self-care (01) ==
LOC: RADMRIMAIN 18:48
PROVIDERS: ATTEND Orthopaedic Surgery
DX: M25.562 Pain in left knee (principal)

== ENCOUNTER → 2024-06-23 | Day surgery (SDC) | payer OTHER ==
[2024-06-22 11:26] VITALS: BMI 24.2
[~2024-06-23] MED LIST: LIDOCAINE 1% (10MG/ML) FOR IV START INTRADERMA PRN; PROPOFOL 10 MG/ML 20 ML VIAL IV ONE
[2024-06-23] MEDS: IV FLUID CONTINUATION 1,000 ML IV ONE (11:30)
[2024-06-23 11:32] VITALS: TEMP 97.2
[2024-06-23] MEDS: LACTATED RINGERS 1,000 ML IV SCH (11:39)
[2024-06-23 11:41] LABS: Glucose,Whole Blood 119 mg/dL (70-110)
--- NOTE | 2024-06-23 12:34 | P.PCN ---
Date of Procedure: 06/23/24 Procedure(s) Performed: BRIEF HISTORY: Patient is a 48-year-old pleasant white female scheduled for an elective colonoscopy as a part of screening for colon cancer. PROCEDURE PERFORMED: Colonoscopy. PREOPERATIVE DIAGNOSIS: Screening for colon cancer. IV sedation per Anesthesia. PROCEDURE: After informed consent was obtained, the patient, was brought into the endoscopy unit. IV sedation was administered by Anesthesia under continuous monitoring. Digital rectal examination was normal. Initially the Olympus CF-160 flexible video colonoscope was then inserted in the rectum, gradually advanced into the cecum without any difficulty. Careful examination was performed as the scope was gradually being withdrawn. Ileocecal valve and the appendiceal orifice were visualized and appeared normal. Prep was excellent. Mucosa of the cecum, ascending colon, transverse colon, descending colon, sigmoid colon, and rectum appeared normal. Scattered sigmoid diverticulosis. Retroflexion was performed in the rectum and no lesions were seen. The patient tolerated the procedure well. IMPRESSION: Normal-appearing colon from rectum to cecum no evidence of colorectal neoplasia. Scattered sigmoid diverticulosis. RECOMMENDATIONS: Findings of this examination were discussed with the patient as well as her family. She was advised to have a repeat colonoscopy in 10 years..
[2024-06-23 13:00] VITALS: BP 134/69; PULSE 78; RESP 16
== END ==
LOC: ORWHC2ENDO 10:39
PROVIDERS: ATTEND Internal Medicine Gastroenterology
DX: Z12.11 Encounter for screening for malignant neoplasm of colon (principal); K57.30 Diverticulosis of large intestine without perforation or abscess without bleeding; E78.5 Hyperlipidemia, unspecified; E11.42 Type 2 diabetes mellitus with diabetic polyneuropathy; F17.200 Nicotine dependence, unspecified, uncomplicated; Z79.1 Long term (current) use of non-steroidal anti-inflammatories (NSAID); Z79.899 Other long term (current) drug therapy; Z79.84 Long term (current) use of oral hypoglycemic drugs
CPT/HCPCS: 81025; 45378; J2704